=== PATIENT | female | born 1995 | race Caucasian/White ===

== ENCOUNTER 2018-04-17 20:22 | Emergency (ER) | payer BC, OTHER ==
[2018-04-17] MEDS: IBUPROFEN 600 MG TAB PO (22:16)
== END 2018-04-17 22:38 | disposition home or self-care (01) ==
LOC: FTE 20:22
DX: M94.0 Chondrocostal junction syndrome [Tietze] (principal); J45.901 Unspecified asthma with (acute) exacerbation
CPT/HCPCS: 71045; 81025; 93005; 99284-25